=== PATIENT | female | born 1990 | race American Indian/Alaskan Native ===

== ENCOUNTER 2021-01-06 13:44 | Emergency (ER) | payer SELFPAY ==
[2021-01-06 15:36] VITALS: BP 121/81
[2021-01-06] MEDS ORDERED: TETANUS,DIPH,PERTUSS(ACELL) VACCINE 0.5 ML SYRINGE IM ONE (15:52)
--- NOTE | 2021-01-06 15:55 | Emergency Department Report ---
ED General Adult HPI - General Chief complaint: Skin Rash Stated complaint: BURN ON BACK Time Seen by Provider: 01/06/21 15:02 Source: patient Mode of arrival: Ambulatory Limitations: No Limitations - History of Present Illness Initial comments: 30-year-old -Turkmen female patient presents with complaints of hot water burn to upper back today. Patient states she sustained a burn while dipping her seema in hot water. She is unsure of her last tetanus vaccination. She rates her pain as 3/10 in severity. No past medical history per patient. -: Sudden Severity scale (0 -10): 3 - Related Data Previous Rx's Medication Instructions Recorded Last Taken Type Ibuprofen [Motrin 800 MG tab] 800 mg PO Q8HR PRN #20 tablet 01/06/21 Unknown Rx Mupirocin [Bactroban 2% OINT] 1 applic TP TID 10 Days #1 tube 01/06/21 Unknown Rx Silver Sulfadiazine [Ssd] 1 gm TP BID 5 Days #1 cream..g. 01/06/21 Unknown Rx Allergies Allergy/AdvReac Type Severity Reaction Status Date / Time No Known Allergies Allergy Unverified 01/06/21 15:00 ED Review of Systems ROS: Stated complaint: BURN ON BACK Other details as noted in HPI Skin: denies: change in color, pruritus Neurological: denies: numbness, paresthesias ED Past Medical Hx - Medications Home Medications: Home Medications Medication Instructions Recorded Confirmed Last Taken Type Ibuprofen [Motrin 800 MG tab] 800 mg PO Q8HR PRN #20 tablet 01/06/21 Unknown Rx Mupirocin [Bactroban 2% OINT] 1 applic TP TID 10 Days #1 tube 01/06/21 Unknown Rx Silver Sulfadiazine [Ssd] 1 gm TP BID 5 Days #1 cream..g. 01/06/21 Unknown Rx ED Physical Exam - General Limitations: No Limitations General appearance: alert, in no apparent distress, obese - Head Head exam: Present: atraumatic, normocephalic - Eye Eye exam: Present: normal appearance. Absent: scleral icterus - Respiratory Respiratory exam: Absent: respiratory distress - Cardiovascular Cardiovascular Exam: Present: regular rate - Neurological Exam Neurological exam: Present: alert, oriented X3 - Psychiatric Psychiatric exam: Present: normal affect, normal mood - Skin Skin exam: Present: warm, dry, intact, other (Approximately 10 cm first-degree burn noted to right upper back. There are a few small vesicles indicating second-degree burn.). Absent: rash ED Course Vital Signs 01/06/21 15:36 Temperature 98.1 F Pulse Rate 81 Respiratory 18 Rate Blood Pressure 121/81 [Left] O2 Sat by Pulse 99 Oximetry ED Medical Decision Making - Medical Decision Making 30-year-old -Turkmen female patient presents with complaints of hot water burn to upper back today. Patient states she sustained a burn while dipping her seema in hot water. She is unsure of her last tetanus vaccination. She rates her pain as 3/10 in severity. No past medical history per patient. First and second-degree fonseca noted to right upper back. Prescription for mupirocin and Silvadene cream given along with ibuprofen for pain control. Recommend follow-up with primary care physician in 3 to 5 days. She is well- appearing, her vitals are normal, she is stable for discharge home. Wound care and strict return precautions were discussed in detail with patient who verbalizes understanding. Critical care attestation.: If time is entered above; I have spent that time in minutes in the direct care of this critically ill patient, excluding procedure time. ED Disposition Clinical Impression: First degree burn, Second degree burn Disposition: 01 HOME / SELF CARE / HOMELESS Is pt being admited?: No Condition: Stable Instructions: Burn Care, Adult, Second-Degree Burn, Adult Prescriptions: Mupirocin [Bactroban 2% OINT] 1 applic TP TID 10 Days #1 tube Ibuprofen [Motrin 800 MG tab] 800 mg PO Q8HR PRN #20 tablet PRN Reason: pain Silver Sulfadiazine [Ssd] 1 gm TP BID 5 Days #1 cream..g. Referrals: PRIMARY CARE, [Referring] - 3-5 Days [facility] [Provider Group] - 3-5 Days Forms: Work/School Release Form(ED)
== END 2021-01-06 18:28 | disposition home or self-care (01) ==
LOC: ED 13:44
DX: T21.23XA Burn of second degree of upper back, initial encounter (principal); Z79.899 Other long term (current) drug therapy; X08.8XXA Exposure to other specified smoke, fire and flames, initial encounter; Y93.89 Activity, other specified; Y92.89 Other specified places as the place of occurrence of the external cause; Y99.8 Other external cause status
CPT/HCPCS: 90471; 90715; 99281